=== PATIENT | male | born 2000 | race Caucasian/White ===

== ENCOUNTER 2019-01-16 03:37 | Emergency (ER) | payer OTHER ==
[2019-01-16] MEDS ORDERED: Lidocaine 1% (PF) 30 ML VIAL ONE (06:32)
--- NOTE | 2019-01-16 10:52 | RAD ---
RIGHT HAND THREE VIEWS: 01/16/2019 HISTORY: Laceration. Injury. FINDINGS: Bandaging material overlies the thumb. No fracture, dislocation or radiopaque foreign body. IMPRESSION: No acute fracture or dislocation. POS: THEE
== END 2019-01-16 08:40 | disposition home or self-care (01) ==
LOC: ERS 03:37
DX: S61.411A Laceration without foreign body of right hand, initial encounter (principal); F41.9 Anxiety disorder, unspecified; Z79.899 Other long term (current) drug therapy; W25.XXXA Contact with sharp glass, initial encounter
CPT/HCPCS: 12002; J2001